=== PATIENT | male | born 2000 | race Hispanic/Latino ===

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

== ENCOUNTER 2022-06-27 13:18 | Emergency (ER) | payer BC, OTHER, SELFPAY ==
[2022-06-27 14:00] LABS: Absolute Lymphocytes (CBC) 1.9 K/uL (0.7-4.9); Hematocrit 42.2 % (39.6-49.0); MCV 92.2 fL (80-100); RBC Red Blood Cell Count 4.57 M/uL (4.33-5.43)
[2022-06-27 14:14] LABS: ALT/SGPT 28 U/L (12-78); AST/SGOT 13 U/L (15-37); Albumin 4.1 g/dL (3.4-5.0); Alkaline Phosphatase 78 U/L (45-117); BUN Blood Urea Nitrogen 17 mg/dL (7-18); Bicarbonate 28 mmol/L (21-32); Bilirubin Direct 0.1 mg/dL (0-0.2); Bilirubin Total 0.3 mg/dL (0.2-1.0); Creatine Phosphokinase 135 U/L (39-308); Glomerular Filtration Rate 115 ml/min (=/>90); Glucose Level 114 mg/dL (74-106); Potassium 3.7 mmol/L (3.5-5.1); Protein, Total 7.5 g/dL (6.4-8.2); Sodium Level 138 mmol/L (136-145)
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
[2022-06-27 14:21] LABS: Troponin High Sensitivity < 3.0 pg/mL (<58.9)
[2022-06-27] MEDS ORDERED: DERMABOND SKIN ADHESIVE TOP ONE (14:26)
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
--- NOTE | 2022-06-27 14:34 | EDPHYS ---
Physician Documentation [facility] Name: Jd Retana Age: 22 yrs Sex: Male : 2000 Arrival Date: 06/27/2022 Time: 13:20 Bed 2 Private MD: ED Physician Tomy Bartlett HPI: 06/27 13:45 This 22 yrs old Male presents to ER via Unassigned with complaints of jr11 Electrocution, Fall Injury. 13:45 Mechanism of injury: fall from ladder, about 10 feet after touching bullb and getting jr11 shocked, 240V. Associated injuries: The patient sustained no obvious injury. Associated injuries: The patient sustained small laceration interspace of RF and MF 1cm . 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 Denies any other pain, no LOC. Historical: - Allergies: 13:54 No Known Allergies; ss - Home Meds: 13:54 None [Active]; ss - PMHx: 13:54 None; ss - PSHx: 13:54 adenoids; ss - Immunization history: Last tetanus immunization: unknown. - Social history:: Smoking status: Reported history of juuling and/or vaping. Patient uses street drugs, marijuana. ROS: 13:45 All other systems are negative. jr11 Exam: 13:50 Constitutional: This is a well developed, well nourished patient who is awake, alert, jr11 and in no acute distress. Head/Face: Normocephalic, atraumatic. Eyes: Extra-ocular motions intact. Lids and lashes normal. Conjunctiva and sclera are non-icteric and not injected. Cornea within normal limits. Periorbital areas with no swelling, redness, or edema. ENT: Nares patent. No nasal discharge, no septal abnormalities noted. Oropharynx with no redness, swelling, or masses, exudates, or evidence of obstruction, uvula midline. Mucous membranes moist. Neck: Trachea midline, no thyromegaly or masses palpated, and no cervical lymphadenopathy. Supple, full range of motion without nuchal rigidity, or vertebral point tenderness. No Meningismus. Chest/axilla: Normal chest wall appearance and motion. Nontender with no deformity. No lesions are appreciated. Cardiovascular: Regular rate and rhythm with a normal S1 and S2. No gallops, murmurs, or rubs. Normal PMI, no JVD. No pulse deficits. Respiratory: Lungs have equal breath sounds bilaterally, clear to auscultation and percussion. No rales, rhonchi or wheezes noted. No increased work of breathing, no retractions or nasal flaring. Abdomen/GI: Soft, non-tender, with normal bowel sounds. No distension or tympany. No guarding or rebound. No evidence of tenderness throughout. Back: No spinal tenderness. No costovertebral tenderness. Full range of motion. Skin: 1.5 cm laceration to L MF and RF interspace MS/ Extremity: Pulses equal, no cyanosis. Neurovascular intact. Full, normal range of motion. Neuro: Awake and alert, GCS 15, oriented to person, place, time, and situation. No gross motor or sensory deficits. Vital Signs: 13:41 BP 125 / 79; Pulse 61; Resp 16; Temp 97.9(TE); Pulse Ox 100% on R/A; ss 14:49 BP 128 / 72; Pulse 60; Resp 16; Pulse Ox 100% on R/A; kr3 Aneta Coma Score: 13:41 Eye Response: spontaneous(4). Verbal Response: oriented(5). Motor Response: obeys ss commands(6). Total: 15. Trauma Score (Adult): 13:41 Eye Response: spontaneous(1); Verbal Response: oriented(1); Motor Response: obeys ss commands(2); Systolic BP: > 89 mm Hg(4); Respiratory Rate: 10 to 29 per min(4); Brewster Score: 15; Trauma Score: 12 Laceration: 14:26 Wound Repair of 1.5cm ( 0.6in ) subcutaneous laceration to left hand. Distal jr11 neuro/vascular/tendon intact. Wound prep: Simple cleansing by optical laboratory technician. Skin closed with 1-0 Prolene using Dermabond. Dressed with non-adherent dressing. Patient tolerated well. MDM: 13:39 Patient medically screened. jr11 13:45 Differential diagnosis: voltage, low electricution, fall, denies any injuries. Data jr11 reviewed: vital signs. 13:50 ED course: Pt does not want sutures, only glue for lac. ED course: No clear entry or jr11 exit wounds. 13:53 ED course: EKG interpreted by me shows sinus bradycardia, normal axis, normal jr11 intervals, EKG otherwise normal.. 14:32 ED course: Ideally would like to OBS pt 2-3 hrs, he states he feels fine and wants to jr11 leave. Pt leaving against advice, but has capacity to make own decision. Pt will return if worsening. No arrythmia in ED.. 06/27 13:41 Order name: Basic Metabolic Panel; Complete Time: 14:24 06/27 13:41 Order name: CBC with Diff; Complete Time: 14:24 06/27 13:41 Order name: LFT's; Complete Time: 14:24 06/27 13:41 Order name: Troponin HS; Complete Time: 14:24 06/27 13:41 Order name: XRAY Chest (1 view); Complete Time: 14:24 06/27 13:41 Order name: CK; Complete Time: 14:24 06/27 13:41 Order name: EKG; Complete Time: 13:41 06/27 13:41 Order name: Cardiac monitoring; Complete Time: 13:42 06/27 13:41 Order name: EKG - Nurse/Tech; Complete Time: 13:42 06/27 13:41 Order name: IV Saline Lock; Complete Time: 13:42 06/27 13:41 Order name: Labs collected and sent; Complete Time: 13:42 06/27 13:41 Order name: O2 Per Protocol; Complete Time: 13:42 06/27 13:41 Order name: O2 Sat Monitoring; Complete Time: 13:42 06/27 13:41 Order name: Wound Care; Complete Time: 14:23 Administered Medications: No medications were administered Disposition Summary: 06/27/22 14:33 Discharge Ordered Location: Home jr11 Condition: Stable jr11 Diagnosis - Low Voltage Electricution jr11 - fall jr11 Discharge Instructions: - Discharge Summary Sheet jr11 - Tissue Adhesive Wound Care jr11 - Electric Shock Injury jr11 Forms: - Medication Reconciliation Form jr11 - Thank You Letter jr11 - Antibiotic Education jr11 - Prescription Opioid Use jr11 - Work release form kr3 Prescriptions: - Ibuprofen 600 mg Oral Tablet - take 1 tablet by ORAL route every 6 hours As needed take with food; 30 tablet; jr11 Refills: 0, Product Selection Permitted Signatures: Dispatcher [employer] Elyssa Du RN RN ss Tomy Bartlett MD MD jr11
--- NOTE | 2022-06-28 06:25 | EKG ---
Test Date: 2022-06-27 Test Time: 13:44:38 Career Technical Education Teacher: ANGELLA MEASUREMENT RESULTS: Intervals: Rate: 59 [place]: 138 QRSD: 82 QT: 416 QTc: 411 [place]: P: 79 [place]: 138 QRS: 76 T: 62 INTERPRETIVE STATEMENTS: Sinus bradycardia Otherwise normal ECG Compared to ECG 10/20/2012 12:30:59 Sinus rhythm no longer present Electronically Signed On 06-28-22 06:24:08 CDT by Smith Quinn
[2022-06-28 18:07] VITALS: TEMP 97.9; O2SAT 100
[2022-06-28 18:08] VITALS: BP 128/72
== END 2022-06-27 14:54 | disposition home or self-care (01) ==
LOC: ER 13:18
PROC: 0JQK0ZZ Repair Left Hand Subcutaneous Tissue and Fascia, Open Approach (ICD-10-PCS; principal; 2022-06-27)
DX: S61.412A Laceration without foreign body of left hand, initial encounter (principal); W86.8XXA Exposure to other electric current, initial encounter
CPT/HCPCS: 36415; 71045; 80048; 80076; 82550; 84484; 85025; 93005; 99284